=== PATIENT | female | born 1935 | race Caucasian/White ===

== ENCOUNTER 2019-02-23 05:28 | Inpatient (IN) | payer MEDICARE ==
[2019-02-23] VITALS (11 sets, daily range): BP systolic 82–132; BP diastolic 24–44
[~2019-02-23] VITALS: Ht 165.1 cm; Wt 105.1 kg
--- NOTE | ~2019-02-23 | DS ---
[place], [place] DISCHARGE SUMMARY [id number] UN[facility] #: [id number] ROOM: 406 DOCTOR: ADELAIDA CRABTREE MD BIRTHDATE: [birth year] DOS: 02/24/2019 DISCHARGE DIAGNOSES: 1. Obstructing 2 cm right renal pelvis stone with mild hydronephrosis. 2. Gram-negative bacilli sepsis with positive blood and urine cultures, preliminary report. 3. Acute over chronic kidney failure, stage 4. 4. Normal left kidney visualized on ultrasound. 5. Severe leukocytosis related to sepsis and high-grade fever, although recorded only in the vitals up to 100.5, but patient apparently had more fever than this. 6. Morbid obesity, BMI of 38.5. 7. Late onset Alzheimer's type dementia. 8. Chronic kidney disease, stage 3. 9. Mixed hyperlipidemia. 10. Benign essential hypertension. 11. Chronic atrial fibrillation and anticoagulation. 12. Cerebrovascular accident with left hemiparesis. 13. Advanced adult failure to thrive and disability. 14. Major depression, recurrent, mild, with psychotic features. 15. Chronic constipation. 16. Generalized seizure disorder. HOSPITAL COURSE: The patient presented from [facility] because of decline in her health, decline in mental status, and mental confusion. The patient was diaphoretic, weak, and hypotensive. The patient was evaluated in the Emergency Department and found to be septic with hypotension, fever, which went up to 100.5 as recorded, hypotensive blood pressure of 96 systolic over 29 diastolic, diaphoretic and confused with a right kidney stone, no left kidney could be visualized with acute over chronic kidney failure, and obstructing right renal pelvic stone. Blood and urine cultures are growing gram-negative bacilli while the patient is being treated with Zosyn and Levaquin. History of generalized seizures, asymptomatic on Keppra. Late onset of Alzheimer's type dementia and behavioral issues. Chronic atrial fibrillation with controlled heart rates. The patient was anticoagulated with apixaban. Benign essential hypertension. All blood pressure medications were held back because of sepsis and hypotension. Blood pressures are improving with hydration. Acute over chronic kidney failure, stage 4, related to sepsis and hypotension. The patient is being hydrated with normal saline and treated with antibiotics. Kidney function is being monitored and patient followed by a jr. systems administrator. Morbid obesity. The patient is working with Dietary. Severe protein calorie malnutrition with albumin level of 2.3. The patient [place], [place] DISCHARGE SUMMARY NAME: LIUDMILA BAIRD UNIT #: [id number] ROOM: [facility] DOCTOR: ADELAIDA CRABTREE MD BIRTHDATE: [birth year] working with Dietary. Diet is being modified. Type 2 diabetes mellitus. Blood sugars being monitored and treated. The patient is on no concentrated sweet diet. Diabetic nephropathy, chronic kidney disease stage 3. Major depression with psychotic features, being treated with mirtazapine [facility]. Chronic constipation, treated and controlled with Colace. The patient is moving bowels. LABORATORY DATA: 1. Blood and urine cultures are positive for gram-negative bacilli and leukocytosis improved from 25,000 to 18,000 with treatment with antibiotics. Infectious Disease specialist is following. 2. Ultrasound results showing 2 cm right renal pelvic stone, causing mild hydronephrosis and patient has no visualized kidney on the left side. We will make an attempt to transfer to a tertiary care center where a urologist would be able to relieve the urinary obstruction. We have no urologist available at [facility]. DISCHARGE MANAGEMENT: Tylenol p.r.n., Keppra 500 mg b.i.d., mirtazapine 15 mg at bedtime, Aldara to perianal warts 5 days a week. Apixaban 2.5 mg b.i.d., DuoNebs every 6 hours, Colace 200 mg at bedtime, Levaquin 500 mg every other day, IV Zosyn 2.25 grams every 6 hours. ADELAIDA CRABTREE MD CM:DISCHARG [id number] ADELAIDA CRABTREE MD 02/24/198 interface
--- NOTE | ~2019-02-23 | EKG ---
[place], [place] ELECTROCARDIOGRAM REPORT NAME: LIUDMILA BAIRD UNIT #: [id number] ROOM: 406 DOCTOR: CRISTOFER DRAFT REPORT BIRTHDATE: [birth year] [facility] Test Date: 2019-02-23 Test Time: 06:21:13 Pat Name: LIUDMILA BAIRD Department: Room: 406 Gender: F Microcomputer Technician: Catie Chappell : 1935 Requested By: GENARO RODRIGUEZ Order Number: [id number] Reading MD: Champ Gilliland Measurements Intervals [place] Rate: 84 P: 112 TN: 178 QRS: 87 QRSD: 105 T: 92 QT: 373 QTc: 441 Interpretive Statements Sinus rhythm Borderline right axis deviation Low voltage, precordial leads Nonspecific T abnrm, anterolateral leads No previous ECG available for comparison Electronically Signed On 02-23-2019 9:55:39 PDT by Champ Gilliland CM:EKGRPT:ELECTROCARDIOGRAM REPORT [id number] GENARO WILLIS DRAFT REPORT GENARO RODRIGUEZ DO
--- NOTE | ~2019-02-23 | WRIGHTHP ---
[place], [place] PATIENT HISTORY AND PHYSICAL EXAM [id number] UNIT #: [id number] ROOM: 406 DOCTOR: ADELAIDA CRABTREE MD BIRTHDATE: [birth year] DOS: HISTORY OF PRESENT ILLNESS: The patient is an 84-year-old female with a past medical history of: 1. Morbid obesity. 2. Advanced adult failure to thrive. 3. Late onset Alzheimer's type dementia. 4. Chronic kidney disease stage 3. 5. Mixed type hyperlipidemia. 6. Benign essential hypertension. 7. Chronic atrial fibrillation and anticoagulation. 8. CVA with left hemiparesis. 9. Major depression, recurrent, mild, and psychotic features. 10. Chronic constipation. 11. Generalized seizure disorder. The patient was sent over from [facility] for acute decline in health status, mental status change, weakness, shakiness, hypotension and the patient was seen in the Emergency Department at [facility] with hypotension, fever, suspected to have a bad urinary tract infection. Blood pressure was 96 systolic over 29 diastolic, temperature of 99.7 degrees Fahrenheit. REVIEW OF SYSTEMS: RESPIRATORY: Some shortness of breath. GASTROINTESTINAL: No nausea, vomiting, diarrhea, constipation. CARDIOVASCULAR: No chest pains or palpitations. FAMILY HISTORY: Noncontributory. HOME MEDICATIONS: The patient on Colace, DuoNeb, apixaban, mirtazapine, Keppra. PHYSICAL EXAMINATION: GENERAL: Awake, alert, trying to communicate, very shaky, morbidly obese with quadriplegia. VITAL SIGNS: Blood pressure 96/29, heart rate 77 beats per minute, breathing 20 times per minute, temperature 99.7 degrees Fahrenheit. HEENT AND NECK: Extraocular movements are intact. Sclerae are anicteric. Oral mucosa is moist and clean. No obvious facial weakness. Neck is supple without any lymphadenopathy. No thyromegaly. No JVD. No carotid arterial bruits. LUNGS: Clear to auscultation. No wheezing. No rhonchi. CARDIOVASCULAR SYSTEM: Heart rate is regular in rate and rhythm. S1 and S2 normally audible. No significant murmur or any other abnormal cardiac sounds. ABDOMEN: Soft, nontender. No obvious organomegaly. Bowel sounds are present. No obvious herniation. EXTREMITIES: Without significant cyanosis or edema. Warm to touch. CENTRAL NERVOUS SYSTEM: Alert and oriented x 3. Cranial nerves II-XII are intact. Speech is normal. The patient is able to move all extremities. Normal muscle strength. Deep tendon reflexes are equal on both sides. Plantars were downgoing. [place], [place] PATIENT HISTORY AND PHYSICAL EXAM NAME: LIUDMILA BAIRD UNIT #: [id number] ROOM: [facility] DOCTOR: ADELAIDA CRABTREE MD BIRTHDATE: [birth year] LABORATORY DATA: CT of the head without contrast showing old infarct. MRI of the brain ordered by Dr. West is still pending. White cell count elevated to 25,000. BUN and creatinine elevated to 54 and 3.4, albumin low at 2.3. IMPRESSION AND PLAN: 1. The patient with severe sepsis, hypotension, leukocytosis, fever, shaking chills. Blood cultures to be ordered and I am getting consult with Infectious Disease specialist. Chest x-ray results are not available. The patient maintains a DNR comfort care code status and will be treated conservatively with antibiotics. 2. Acute over chronic kidney failure, stage 4, being treated with hydration and normal saline. Dr. Chacon, the architectural wood model maker has been consulted. 3. Abnormal CT of the head being further evaluated by Dr. Nella West with the MRI of the brain and turned out to be without any acute abnormality. 4. Morbid obesity. The patient will be followed by Dietary. 5. Severe protein calorie malnutrition with an albumin level of 2.3. The patient to be followed by Dietary. 6. Type 2 diabetes mellitus. Blood sugar elevated to 182. Blood sugars to be monitored and treated. The patient kept on no concentrated sweet diet. 7. Diabetic nephropathy to be followed and treated. 8. Generalized seizure disorder. I will continue Keppra. No recent seizures. 9. Major depression and psychotic features. The patient already on mirtazapine by the psychiatrist. 10. Chronic atrial fibrillation, heart rates controlled. The patient anticoagulated with apixaban. 11. Chronic constipation, treated and controlled with Colace. ADELAIDA CRABTREE MD CM:HISPHYS:PATIENT HISTORY AND PHYSICAL EXAMINATION [id number] ADELAIDA CRABTREE MD 02/23/19 1200 interface
[~2019-02-23 05:28] MED LIST: ACCUPRIL20 MG PO; ASPIRIN CHILDRE81 MG PO; ATIVAN0.5 MG PO; ATIVAN1 MG PO; ATOXIMETIN-B1 CAP PO; CALCIUM CITRAT1 EAC3 PO; COREG12.5 M1 PO; COUMADIN5 M2 PO; COUMADIN7.5 M1 PO; DAILY VALUE1 EACH PO; DOC-Q-LACE100 MG PO; DOXYCYCLINE100 MG PO; FORTEO2.4 ML SQ; Ipratropium Brom3 ML INH; JANTOVEN7.5 MG PO; KEPPRA500 MG PO; LEVOFLOXACIN500 MG PO; LIDOCAINE15 GM TP; NORVASC5 MG PO; OXY IR5 MG PO; OYSTER SHELL C1 EAC2 PO; PREDNICOT20 MG PO; REMERON15 M2 PO; REMERON15 MG PO; ROCEPHIN1 GM IV; SIMVASTATIN20 MG PO; TRAMADOL HCL50 MG PO; ULTRAM50 MG PO; VENTOLIN 02.5 MG/3 M INH; VITAMIN B-12 PO; VITAMIN B-12500 MCG PO; VITAMIN D1000 IU PO; VITAMIN D2000 IU PO; ZOCOR20 MG PO
[2019-02-23 06:22] LABS: HEMATOCRIT 32.4 % (37.0-47.0); HEMOGLOBIN 10.3 g/dl (12.0-16.0); MEAN CELL VOLUME 92.3 fl (81.0-99.0); MEAN CORPUSCULAR HGB 29.3 pg (27.0-31.0); MEAN CORPUSCULAR HGB CONC 31.8 g/dl (33.0-37.0); MEAN PLATELET VOLUME 10.5 fl (9.6-12.3); PLATELET COUNT AUTOMATED 206 10*3/uL (130-400); RED BLOOD COUNT 3.51 10*6/uL (4.10-5.10); RED CELL DISTRI WIDTH 15.8 % (0-14.5); WHITE BLOOD COUNT 25.1 10*3/uL (4.8-10.8)
[2019-02-23 06:33] LABS: INTERNATIONAL NORM RATIO 1.1 (2.0-3.5)
[2019-02-23 06:34] LABS: ALBUMIN 2.3 gm/dl (3.1-4.5); CREATININE 3.44 mg/dL (0.55-1.02); POTASSIUM 4.6 mmol/L (3.5-5.1); TOTAL PROTEIN 6.9 gm/dL (6.4-8.2)
[2019-02-23 06:39] LABS: BILIRUBIN NEGATIVE (NEGATIVE); BLOOD 3+ (NEGATIVE); CLARITY TURBID (CLEAR); COLOR BROWN (YELLOW); GLUCOSE NEGATIVE (NEGATIVE); KETONE NEGATIVE (NEGATIVE); LEUKO ESTERASE 3+ (NEGATIVE); NITRITE NEGATIVE (NEGATIVE); PH 7.5 (5.0-9.0); SPECIFIC GRAVITY 1.015 (1.005-1.030); UROBILINOGEN 0.2 E.U./dl (0.2-1.0)
[2019-02-23 06:39] LABS: TROPONIN I 0.292 ng/ml (<0.045)
[2019-02-23 06:44] LABS: TOTAL CELLS COUNTED 100 #CELLS
[2019-02-23 06:45] LABS: VACUOLATION OF NEUTROPHILS SLIGHT
[2019-02-23 06:47] LABS: PLATELET SUFFICIENCY NORMAL (NORMAL)
[2019-02-23 06:48] LABS: BACTERIA 4+; RBC TNTC rbc/hpf (0-2); WBC TNTC wbc/hpf (0-5)
[2019-02-23] MEDS ORDERED: ACETAMINOPHEN325 M2 PO (08:41)
[2019-02-23] MEDS ORDERED: ALDARA1 EACH T (08:43)
[2019-02-23] MEDS ORDERED: AUGMENTIN 875-875 MG PO (08:45)
[2019-02-23] MEDS ORDERED: ASPERCREME 1035.4 GM T (08:46)
[2019-02-23] MEDS ORDERED: ATORVASTATIN CA10 M1 PO (08:46)
[2019-02-23] MEDS ORDERED: ELIQUIS5 M1 PO (08:48)
[2019-02-23] MEDS ORDERED: FOSAMAX70 M1 PO (08:49)
[2019-02-23] MEDS ORDERED: GLUCAGON EMERGEN1 M1 IM (08:51)
[2019-02-23] MEDS ORDERED: Ipratropium Brom3 ML INH (08:52)
[2019-02-23] MEDS ORDERED: MILK OF MA400 MG/5 M PO (08:54)
[2019-02-23] MEDS ORDERED: PREDNISONE10 MG PO (08:55)
[2019-02-23] MEDS ORDERED: TAB-A-VITE1 EACH PO (08:57)
[2019-02-23 17:41] LABS: URINE CREATININE RANDOM 90.1 mg/dL
[2019-02-24] VITALS: BP 99/34
[2019-02-24 07:52] LABS: BASO % 0.2 % (0.0-1.0); EOS % 0.1 % (1.0-4.0); HEMATOCRIT 32.6 % (37.0-47.0); HEMOGLOBIN 10.1 g/dl (12.0-16.0); LYMPH # 2.3 10*3/uL (1.3-4.4); LYMPH % 12.5 % (27.0-41.0); MEAN CORPUSCULAR HGB 29.4 pg (27.0-31.0); MEAN PLATELET VOLUME 11.4 fl (9.6-12.3); MONO # 1.2 10*3/uL (0.1-1.0); MONO % 6.6 % (3.0-9.0); NEUT # 14.7 10*3/uL (2.3-7.9); PLATELET COUNT AUTOMATED 150 10*3/uL (130-400); RED BLOOD COUNT 3.43 10*6/uL (4.10-5.10); RED CELL DISTRI WIDTH 15.9 % (0-14.5); WHITE BLOOD COUNT 18.3 10*3/uL (4.8-10.8)
[2019-02-24 08:00] VITALS: BP 100/58
[2019-02-24 08:19] LABS: CREATININE 2.93 mg/dL (0.55-1.02); PHOSPHOROUS 3.2 mg/dL (2.5-4.9); POTASSIUM 4.2 mmol/L (3.5-5.1); TOTAL PROTEIN 6.2 gm/dL (6.4-8.2)
== END 2019-02-24 12:57 | disposition short-term general hospital (02) | DRG 871 ==
LOC: ED 05:28 → 4E 07:05 → EDHOLD 07:05 → 4E 07:35
PROVIDERS: Emergency Medicine; Internal Medicine Nephrology; ADMIT Internal Medicine
DX: A41.59 Other Gram-negative sepsis (principal); E43 Unspecified severe protein-calorie malnutrition; N17.9 Acute kidney failure, unspecified; N18.4 Chronic kidney disease, stage 4 (severe); I69.354 Hemiplegia and hemiparesis following cerebral infarction affecting left non-dominant side; N13.6 Pyonephrosis; I48.20 Chronic atrial fibrillation, unspecified; I12.9 Hypertensive chronic kidney disease with stage 1 through stage 4 chronic kidney disease, or unspecified chronic kidney disease; Z66 Do not resuscitate; Z51.5 Encounter for palliative care; E11.22 Type 2 diabetes mellitus with diabetic chronic kidney disease; F32.9 Major depressive disorder, single episode, unspecified; R31.9 Hematuria, unspecified; G40.909 Epilepsy, unspecified, not intractable, without status epilepticus; R65.20 Severe sepsis without septic shock; E66.01 Morbid (severe) obesity due to excess calories; E86.0 Dehydration; R62.7 Adult failure to thrive; E78.2 Mixed hyperlipidemia; G30.1 Alzheimer's disease with late onset; F02.80 Dementia in other diseases classified elsewhere, unspecified severity, without behavioral disturbance, psychotic disturbance, mood disturbance, and anxiety; K59.09 Other constipation; Z79.82 Long term (current) use of aspirin; Z79.899 Other long term (current) drug therapy; Z82.49 Family history of ischemic heart disease and other diseases of the circulatory system; Z80.9 Family history of malignant neoplasm, unspecified; Z79.01 Long term (current) use of anticoagulants; Z79.84 Long term (current) use of oral hypoglycemic drugs; Z68.38 Body mass index [BMI] 38.0-38.9, adult

== ENCOUNTER 2019-06-28 07:38 | Emergency (ER) | payer MEDICARE, OTHER ==
[~2019-06-28] VITALS: Ht 172.7 cm; Wt 108.0 kg
[~2019-06-28 07:38] MED LIST changes: +ACETAMINOPHEN325 M2 PO; +ALDARA1 EACH T; +ASPERCREME 1035.4 GM T; +ATORVASTATIN CA10 M1 PO; +AUGMENTIN 875-875 MG PO; +ELIQUIS5 M1 PO; +FOSAMAX70 M1 PO; +GLUCAGON EMERGEN1 M1 IM; +MILK OF MA400 MG/5 M PO; +PREDNISONE10 MG PO; +TAB-A-VITE1 EACH PO
[2019-06-28 08:33] LABS: BILIRUBIN NEGATIVE (NEGATIVE); BLOOD 3+ (NEGATIVE); CLARITY CLOUDY (CLEAR); COLOR YELLOW (YELLOW); GLUCOSE NEGATIVE (NEGATIVE); KETONE NEGATIVE (NEGATIVE)
[2019-06-28 08:34] LABS: LEUKO ESTERASE 3+ (NEGATIVE); NITRITE NEGATIVE (NEGATIVE); PH 8.5 (5.0-9.0); UROBILINOGEN 0.2 E.U./dl (0.2-1.0)
[2019-06-28 08:42] LABS: RBC TNTC rbc/hpf (0-2); WBC TNTC wbc/hpf (0-5)
[2019-06-28 08:44] LABS: BACTERIA 4+
[2019-06-28 08:54] LABS: BASO # 0.1 10*3/uL (0.0-0.1); BASO % 0.6 % (0.0-1.0); EOS # 0.3 10*3/uL (0.0-0.4); EOS % 3.2 % (1.0-4.0); HEMATOCRIT 38.6 % (37.0-47.0); HEMOGLOBIN 11.9 g/dl (12.0-16.0); LYMPH # 3.5 10*3/uL (1.3-4.4); LYMPH % 39.9 % (27.0-41.0); MEAN CELL VOLUME 92.8 fl (81.0-99.0); MEAN CORPUSCULAR HGB 28.6 pg (27.0-31.0); MEAN CORPUSCULAR HGB CONC 30.8 g/dl (33.0-37.0); MEAN PLATELET VOLUME 10.4 fl (9.6-12.3); MONO # 0.5 10*3/uL (0.1-1.0); MONO % 6.1 % (3.0-9.0); NEUT # 4.4 10*3/uL (2.3-7.9); PLATELET COUNT AUTOMATED 303 10*3/uL (130-400); RED BLOOD COUNT 4.16 10*6/uL (4.10-5.10); RED CELL DISTRI WIDTH 15.2 % (0-14.5); WHITE BLOOD COUNT 8.8 10*3/uL (4.8-10.8)
[2019-06-28 09:09] LABS: ALBUMIN 3.1 gm/dl (3.1-4.5); CREATININE 1.11 mg/dL (0.55-1.02); POTASSIUM 4.2 mmol/L (3.5-5.1); TOTAL PROTEIN 7.8 gm/dL (6.4-8.2)
[2019-06-28 09:18] LABS: ACT PARTIAL THROMBO TIME 30.4 SECONDS (20.0-32.1)
[2019-06-28] MEDS ORDERED: CEFUROXIME AXE500 MG PO (09:53)
== END 2019-06-28 10:00 | disposition home or self-care (01) ==
LOC: ED 07:38
PROVIDERS: Family Medicine
DX: N39.0 Urinary tract infection, site not specified (principal); I10 Essential (primary) hypertension; F32.9 Major depressive disorder, single episode, unspecified; F41.9 Anxiety disorder, unspecified; E78.5 Hyperlipidemia, unspecified; Z79.899 Other long term (current) drug therapy; Z79.2 Long term (current) use of antibiotics

== ENCOUNTER 2019-07-19 11:24 | Emergency (ER) | payer MEDICARE ==
[~2019-07-19 11:24] MED LIST changes: +CEFUROXIME AXE500 MG PO
[2019-07-19 12:22] LABS: BASO # 0.1 10*3/uL (0.0-0.1); BASO % 0.6 % (0.0-1.0); EOS # 0.4 10*3/uL (0.0-0.4); EOS % 4.2 % (1.0-4.0); HEMATOCRIT 39.1 % (37.0-47.0); HEMOGLOBIN 11.8 g/dl (12.0-16.0); LYMPH # 3.8 10*3/uL (1.3-4.4); LYMPH % 45.4 % (27.0-41.0); MEAN CELL VOLUME 93.3 fl (81.0-99.0); MEAN CORPUSCULAR HGB 28.2 pg (27.0-31.0); MEAN CORPUSCULAR HGB CONC 30.2 g/dl (33.0-37.0); MEAN PLATELET VOLUME 10.4 fl (9.6-12.3); MONO # 0.5 10*3/uL (0.1-1.0); MONO % 6.3 % (3.0-9.0); NEUT # 3.7 10*3/uL (2.3-7.9); NEUT % 43.3 % (47.0-73.0); PLATELET COUNT AUTOMATED 302 10*3/uL (130-400); RED BLOOD COUNT 4.19 10*6/uL (4.10-5.10); WHITE BLOOD COUNT 8.4 10*3/uL (4.8-10.8)
[2019-07-19 12:38] LABS: CREATININE 1.41 mg/dL (0.55-1.02); POTASSIUM 4.6 mmol/L (3.5-5.1); TOTAL PROTEIN 7.6 gm/dL (6.4-8.2)
== END 2019-07-19 17:02 ==
LOC: ED 11:24
PROVIDERS: Emergency Medicine
DX: J06.9 Acute upper respiratory infection, unspecified (principal); I10 Essential (primary) hypertension; F41.9 Anxiety disorder, unspecified; F32.9 Major depressive disorder, single episode, unspecified; E78.5 Hyperlipidemia, unspecified; Z79.899 Other long term (current) drug therapy; Z79.2 Long term (current) use of antibiotics; Z86.73 Personal history of transient ischemic attack (TIA), and cerebral infarction without residual deficits

== ENCOUNTER 2020-03-16 11:53 | Emergency (ER) | payer MEDICARE | END 2020-03-16 14:01 | disposition other institution (70) | LOC: ED 11:53 | DX: R11.2 Nausea with vomiting, unspecified (principal); Z79.899 Other long term (current) drug therapy; Z79.2 Long term (current) use of antibiotics ==